=== PATIENT | male | born 1985 | race Caucasian/White ===

== ENCOUNTER 2018-02-26 22:08 | Emergency (ER) | payer OTHER ==
[~2018-02-26] VITALS: Ht 177.8 cm; Wt 95.3 kg
[2018-02-26 22:19] VITALS: Ht 177.8 cm; Wt 95.3 kg
[2018-02-27 00:55] VITALS: BP 106/72
== END 2018-02-27 00:55 | disposition home or self-care (01) ==
LOC: ED 22:08
DX: G89.29 Other chronic pain (principal); M54.5 Low back pain; Z88.0 Allergy status to penicillin
CPT/HCPCS: J3010